=== PATIENT | female | born 1945 | race Caucasian/White ===

== ENCOUNTER 2023-06-24 09:58 | Outpatient (RCR) | payer MEDICARE, SELFPAY ==
[2023-05-27 10:05] VITALS: BP 141/75
[2023-05-27] MEDS: PROLASTIN C 100 MG IV (10:23)
[2023-06-03 10:13] VITALS: BP 142/68
[2023-06-03] MEDS: PROLASTIN C 100 MG IV (10:30)
[2023-06-10] MEDS: PROLASTIN C 100 MG IV (10:31)
[2023-06-10 10:35] VITALS: BP 130/58
[2023-06-17 10:05] VITALS: BP 141/62
[2023-06-17] MEDS: PROLASTIN C 100 MG IV (10:19)
[2023-06-24 10:11] VITALS: BP 148/79
[2023-06-24] MEDS: PROLASTIN C 100 MG IV (10:28)
== END 2023-06-24 23:59 | disposition home or self-care (01) ==
LOC: OID 09:58
PROVIDERS: ATTENDING PHYSICIAN Internal Medicine Critical Care Medicine; FAMILY PHYSICIAN Family Medicine
DX: E88.01 Alpha-1-antitrypsin deficiency (principal)
CPT/HCPCS: 96365; J0256

== ENCOUNTER → 2023-07-01 11:18 | Outpatient (REF) | payer MEDICARE, SELFPAY | LOC: HWWDC 11:18 | PROVIDERS: ATTENDING PHYSICIAN Family Medicine | DX: Z12.31 Encounter for screening mammogram for malignant neoplasm of breast (principal) | CPT/HCPCS: 77063; 77067 ==

== ENCOUNTER 2023-07-22 09:50 | Outpatient (RCR) | payer MEDICARE, SELFPAY ==
[2023-07-01] MEDS: PROLASTIN C 100 MG IV (10:16)
[2023-07-01 10:54] VITALS: BP 125/48
[2023-07-08 10:19] VITALS: BP 119/69
[2023-07-08] MEDS: PROLASTIN C 200 MG IV (10:38)
[2023-07-22 10:08] VITALS: BP 148/76
[2023-07-22] MEDS: PROLASTIN C 100 MG IV (10:27)
== END 2023-07-23 08:46 | disposition home or self-care (01) ==
LOC: OID 09:50
PROVIDERS: ATTENDING PHYSICIAN Internal Medicine Critical Care Medicine; FAMILY PHYSICIAN Family Medicine
DX: E88.01 Alpha-1-antitrypsin deficiency (principal)
CPT/HCPCS: 96365; J0256

== ENCOUNTER 2023-07-28 06:25 | Day surgery (SDC) | payer MEDICARE, SELFPAY ==
[2023-07-28 08:15] VITALS: BP 134/69
[2023-07-28 08:38] VITALS: BMI 30.4
[2023-07-28 10:35] VITALS: BP 115/66
[2023-07-28 10:45] VITALS: BP 106/68
[2023-07-28 11:01] VITALS: BP 139/67
== END 2023-07-28 11:20 | disposition home or self-care (01) ==
LOC: GI 06:25
PROVIDERS: ATTENDING PHYSICIAN Internal Medicine Gastroenterology
DX: D12.0 Benign neoplasm of cecum (principal); D12.3 Benign neoplasm of transverse colon; D12.4 Benign neoplasm of descending colon; D12.5 Benign neoplasm of sigmoid colon; K57.30 Diverticulosis of large intestine without perforation or abscess without bleeding; K64.0 First degree hemorrhoids; R19.5 Other fecal abnormalities
CPT/HCPCS: 45385; 45380; 45381; 88305

== ENCOUNTER 2023-08-19 09:49 | Outpatient (RCR) | payer MEDICARE, SELFPAY ==
[2023-07-29 10:00] VITALS: BP 122/68
[2023-07-29] MEDS: PROLASTIN C 100 MG IV (10:28)
[2023-08-05 10:09] VITALS: BP 112/83
[2023-08-05] MEDS: PROLASTIN C 100 MG IV (10:32)
[2023-08-12] MEDS: PROLASTIN C 100 MG IV (10:18)
[2023-08-12 10:31] VITALS: BP 144/72
[2023-08-19 10:00] VITALS: BP 169/72
[2023-08-19] MEDS: PROLASTIN C 100 MG IV (10:13)
== END 2023-08-19 14:20 | disposition home or self-care (01) ==
LOC: OID 09:49
PROVIDERS: ATTENDING PHYSICIAN Internal Medicine Critical Care Medicine; FAMILY PHYSICIAN Family Medicine
DX: E88.01 Alpha-1-antitrypsin deficiency (principal)
CPT/HCPCS: 96365; J0256

== ENCOUNTER 2023-09-23 10:00 | Outpatient (RCR) | payer MEDICARE, SELFPAY ==
[2023-08-26 10:15] VITALS: BP 148/72
[2023-08-26] MEDS: PROLASTIN C 100 MG IV (10:30)
[2023-09-02] MEDS: PROLASTIN C 100 MG IV (10:23)
[2023-09-02 10:35] VITALS: BP 154/70
[2023-09-09 10:07] VITALS: BP 146/82
[2023-09-09] MEDS: PROLASTIN C 100 MG IV (10:17)
[2023-09-16] MEDS: PROLASTIN C 100 MG IV (10:30)
[2023-09-16 10:43] VITALS: BP 141/75
[2023-09-23] MEDS: PROLASTIN C 100 MG IV (10:33)
[2023-09-23 10:38] VITALS: BP 157/88
== END 2023-09-24 08:55 | disposition home or self-care (01) ==
LOC: OID 10:00
PROVIDERS: ATTENDING PHYSICIAN Internal Medicine Critical Care Medicine; FAMILY PHYSICIAN Family Medicine
DX: E88.01 Alpha-1-antitrypsin deficiency (principal)
CPT/HCPCS: 96365; J0256

== ENCOUNTER 2023-10-21 11:20 | Outpatient (RCR) | payer MEDICARE, SELFPAY ==
[2023-09-30 10:10] VITALS: BP 154/73
[2023-09-30] MEDS: PROLASTIN C 100 MG IV (10:24)
[2023-10-07 10:10] VITALS: BP 138/74
[2023-10-07] MEDS: PROLASTIN C 100 MG IV (10:35)
[2023-10-14 09:55] VITALS: BP 123/66
[2023-10-14] MEDS: PROLASTIN C 100 MG IV (10:12)
[2023-10-21 11:35] VITALS: BP 124/76
[2023-10-21] MEDS: PROLASTIN C 100 MG IV (12:01)
== END 2023-10-22 10:50 | disposition home or self-care (01) ==
LOC: OID 11:20
PROVIDERS: ATTENDING PHYSICIAN Internal Medicine Critical Care Medicine; FAMILY PHYSICIAN Family Medicine
DX: E88.01 Alpha-1-antitrypsin deficiency (principal)
CPT/HCPCS: 96365; J0256

== ENCOUNTER 2023-11-18 09:42 | Outpatient (RCR) | payer MEDICARE, SELFPAY ==
[2023-10-27 10:10] VITALS: BP 136/64
[2023-10-27] MEDS: PROLASTIN C 100 MG IV (10:20)
[2023-11-04] MEDS: PROLASTIN C 100 MG IV (10:31)
[2023-11-04 10:41] VITALS: BP 129/67
[2023-11-11 10:30] VITALS: BP 129/68
[2023-11-11] MEDS: PROLASTIN C 100 MG IV (10:43)
[2023-11-11 10:45] VITALS: BMI 31.3
[2023-11-18 10:00] VITALS: BP 141/73
[2023-11-18] MEDS: PROLASTIN C 100 MG IV (10:06)
== END 2023-11-19 08:29 | disposition home or self-care (01) ==
LOC: OID 09:42
PROVIDERS: ATTENDING PHYSICIAN Internal Medicine Critical Care Medicine; FAMILY PHYSICIAN Family Medicine
DX: E88.01 Alpha-1-antitrypsin deficiency (principal)
CPT/HCPCS: 96365; J0256

== ENCOUNTER 2023-12-23 09:14 | Outpatient (RCR) | payer MEDICARE, SELFPAY ==
[2023-11-25 09:55] VITALS: BP 160/82
[2023-11-25] MEDS: PROLASTIN C 100 MG IV (10:08)
[2023-12-02 10:00] VITALS: BP 153/72
[2023-12-02] MEDS: PROLASTIN C 100 MG IV (10:23)
[2023-12-02 10:30] VITALS: BMI 32.2
[2023-12-09 09:20] VITALS: BP 119/60
[2023-12-09] MEDS: PROLASTIN C 100 MG IV (09:46)
[2023-12-09 09:57] VITALS: BMI 31.8
[2023-12-16 09:20] VITALS: BP 134/70
[2023-12-16] MEDS: PROLASTIN C 100 MG IV (09:55)
[2023-12-16 09:57] VITALS: BMI 31.6
[2023-12-23 09:25] VITALS: BP 146/70
[2023-12-23] MEDS: PROLASTIN C 100 MG IV (09:36)
== END 2023-12-24 08:21 | disposition home or self-care (01) ==
LOC: OID 09:14
PROVIDERS: ATTENDING PHYSICIAN Internal Medicine Critical Care Medicine; FAMILY PHYSICIAN Family Medicine
DX: E88.01 Alpha-1-antitrypsin deficiency (principal)
CPT/HCPCS: 96365; J0256

== ENCOUNTER 2024-01-20 09:03 | Outpatient (RCR) | payer MEDICARE, SELFPAY ==
[2023-12-30] MEDS: PROLASTIN C 100 MG IV (09:38)
[2023-12-30 09:47] VITALS: BP 144/69
[2024-01-06] MEDS: PROLASTIN C 100 MG IV (09:32)
[2024-01-06 09:47] VITALS: BP 135/67
[2024-01-13 09:29] VITALS: BP 135/72
[2024-01-13] MEDS: PROLASTIN C 100 MG IV (09:47)
[2024-01-20 09:10] VITALS: BP 158/83
[2024-01-20] MEDS: PROLASTIN C 100 MG IV (09:24)
== END 2024-01-24 23:59 | disposition home or self-care (01) ==
LOC: OID 09:03
PROVIDERS: ATTENDING PHYSICIAN Internal Medicine Critical Care Medicine; FAMILY PHYSICIAN Family Medicine
DX: E88.01 Alpha-1-antitrypsin deficiency (principal)
CPT/HCPCS: 96365; J0256

== ENCOUNTER 2024-02-24 09:45 | Outpatient (RCR) | payer MEDICARE, SELFPAY ==
[2024-01-27 09:40] VITALS: BP 116/63
[2024-01-27] MEDS: PROLASTIN C 100 MG IV (09:54)
[2024-01-27 10:14] VITALS: BMI 30.5
[2024-02-03 09:30] VITALS: BP 128/53
[2024-02-03] MEDS: PROLASTIN C 100 MG IV (09:48)
[2024-02-03 09:50] VITALS: BMI 30.9
[2024-02-10] MEDS: PROLASTIN C 100 MG IV (09:43)
[2024-02-10 09:48] VITALS: BP 123/53; BMI 30.7
[2024-02-17 09:40] VITALS: BP 139/66; BMI 30.6
[2024-02-17] MEDS: PROLASTIN C 100 MG IV (09:59)
[2024-02-24 09:45] VITALS: BP 144/77
[2024-02-24] MEDS: PROLASTIN C 100 MG IV (10:11)
== END 2024-02-24 23:59 | disposition home or self-care (01) ==
LOC: OID 09:45
PROVIDERS: ATTENDING PHYSICIAN Internal Medicine Critical Care Medicine; FAMILY PHYSICIAN Family Medicine
DX: E88.01 Alpha-1-antitrypsin deficiency (principal)
CPT/HCPCS: 96365; J0256

== ENCOUNTER 2024-03-22 10:26 | Outpatient (RCR) | payer MEDICARE, SELFPAY ==
[2024-03-02] MEDS: PROLASTIN C 100 MG IV (10:35)
[2024-03-02 10:44] VITALS: BP 130/74
[2024-03-09] MEDS: PROLASTIN C 100 MG IV (10:13)
[2024-03-09 10:15] VITALS: BP 139/59
[2024-03-16 10:00] VITALS: BP 151/74
[2024-03-16] MEDS: PROLASTIN C 100 MG IV (10:06)
[2024-03-22] MEDS: PROLASTIN C 100 MG IV (10:27)
[2024-03-22 10:31] VITALS: BP 128/70
== END 2024-03-24 08:14 | disposition home or self-care (01) ==
LOC: OID 10:26
PROVIDERS: ATTENDING PHYSICIAN Internal Medicine Critical Care Medicine; FAMILY PHYSICIAN Family Medicine
DX: E88.01 Alpha-1-antitrypsin deficiency (principal)
CPT/HCPCS: 96365; J0256

== ENCOUNTER 2024-04-20 09:41 | Outpatient (RCR) | payer MEDICARE, SELFPAY ==
[2024-03-30 10:00] VITALS: BP 150/75
[2024-03-30] MEDS: PROLASTIN C 100 MG IV (10:08)
[2024-03-30 10:14] VITALS: BMI 30.7
[2024-04-06] MEDS: PROLASTIN C 100 MG IV (10:20)
[2024-04-06 10:36] VITALS: BP 148/74; BMI 29.5
[2024-04-13 10:10] VITALS: BP 127/69
[2024-04-13] MEDS: PROLASTIN C 100 MG IV (10:20)
[2024-04-13 10:32] VITALS: BMI 30.4
[2024-04-20 10:00] VITALS: BMI 30.5
[2024-04-20 10:09] VITALS: BP 136/68
[2024-04-20] MEDS: PROLASTIN C 100 MG IV (10:20)
== END 2024-04-21 08:48 | disposition home or self-care (01) ==
LOC: OID 09:41
PROVIDERS: ATTENDING PHYSICIAN Internal Medicine Critical Care Medicine; FAMILY PHYSICIAN Family Medicine
DX: E88.01 Alpha-1-antitrypsin deficiency (principal); D80.1 Nonfamilial hypogammaglobulinemia
CPT/HCPCS: 96365; J0256

== ENCOUNTER 2024-05-25 09:50 | Outpatient (RCR) | payer MEDICARE, SELFPAY ==
[2024-04-27 10:12] VITALS: BP 144/68
[2024-04-27] MEDS: PROLASTIN C 100 MG IV (10:36)
[2024-05-04 10:00] VITALS: BP 153/68
[2024-05-04] MEDS: PROLASTIN C 100 MG IV (10:13)
[2024-05-11 09:55] VITALS: BP 154/57
[2024-05-11] MEDS: PROLASTIN C 100 MG IV (10:07)
[2024-05-18 10:11] VITALS: BP 124/61
[2024-05-18] MEDS: PROLASTIN C 100 MG IV (10:23)
[2024-05-25 10:20] VITALS: BP 121/61
[2024-05-25] MEDS: PROLASTIN C 200 MG IV (10:35)
[2024-05-25 10:42] VITALS: BMI 30.1
== END 2024-05-26 11:24 | disposition home or self-care (01) ==
LOC: OID 09:50
PROVIDERS: ATTENDING PHYSICIAN Internal Medicine Critical Care Medicine; FAMILY PHYSICIAN Family Medicine
DX: E88.01 Alpha-1-antitrypsin deficiency (principal); D80.1 Nonfamilial hypogammaglobulinemia
CPT/HCPCS: 96365; J0256

== ENCOUNTER 2024-06-22 09:53 | Outpatient (RCR) | payer MEDICARE, SELFPAY ==
[2024-06-08 10:15] VITALS: BP 117/65
[2024-06-08] MEDS: PROLASTIN C 100 MG IV (10:26)
[2024-06-08 10:36] VITALS: BMI 30.1
[2024-06-08 10:45] VITALS: BP 122/66
[2024-06-15 10:20] VITALS: BP 134/74
[2024-06-15] MEDS: PROLASTIN C 100 MG IV (10:26)
[2024-06-22 10:05] VITALS: BP 112/52
[2024-06-22] MEDS: PROLASTIN C 100 MG IV (10:22)
[2024-06-22 10:26] VITALS: BMI 29.5
== END 2024-06-23 23:59 | disposition home or self-care (01) ==
LOC: OID 09:53
PROVIDERS: ATTENDING PHYSICIAN Internal Medicine Critical Care Medicine; FAMILY PHYSICIAN Family Medicine
DX: E88.01 Alpha-1-antitrypsin deficiency (principal); D80.1 Nonfamilial hypogammaglobulinemia
CPT/HCPCS: 96365; J0256

== ENCOUNTER → 2024-07-03 15:36 | Outpatient (REF) | payer MEDICARE, SELFPAY | LOC: HWWDC 15:36 | PROVIDERS: ATTENDING PHYSICIAN Family Medicine | DX: Z12.31 Encounter for screening mammogram for malignant neoplasm of breast (principal) | CPT/HCPCS: 77063; 77067 ==

== ENCOUNTER 2024-07-20 09:46 | Outpatient (RCR) | payer MEDICARE, SELFPAY ==
[2024-06-29] MEDS: PROLASTIN C 100 MG IV (10:05)
[2024-06-29 12:41] VITALS: BP 128/90
[2024-07-06 10:29] VITALS: BP 114/73
[2024-07-06] MEDS: PROLASTIN C 100 MG IV (10:36)
[2024-07-13 10:04] VITALS: BP 116/65
[2024-07-13] MEDS: PROLASTIN C 80 MG IV (10:11)
[2024-07-20 10:00] VITALS: BP 129/63
[2024-07-20] MEDS: PROLASTIN C 80 MG IV (10:11)
== END 2024-07-21 08:25 | disposition home or self-care (01) ==
LOC: OID 09:46
PROVIDERS: ATTENDING PHYSICIAN Internal Medicine Critical Care Medicine; FAMILY PHYSICIAN Family Medicine
DX: E88.01 Alpha-1-antitrypsin deficiency (principal); D80.1 Nonfamilial hypogammaglobulinemia
CPT/HCPCS: 96365; J0256

== ENCOUNTER 2024-08-17 09:48 | Outpatient (RCR) | payer MEDICARE, SELFPAY ==
[2024-07-27 09:50] VITALS: BP 128/68
[2024-07-27] MEDS: PROLASTIN C 80 MG IV (10:05)
[2024-08-03 10:05] VITALS: BP 126/71
[2024-08-03] MEDS: PROLASTIN C 100 MG IV (10:10)
[2024-08-10 10:00] VITALS: BP 138/61
[2024-08-10] MEDS: PROLASTIN C 100 MG IV (10:30)
[2024-08-10 11:10] VITALS: BP 142/62
[2024-08-17] MEDS: PROLASTIN C 100 MG IV (10:30)
[2024-08-17 11:32] VITALS: BP 137/71
== END 2024-08-18 10:12 | disposition home or self-care (01) ==
LOC: OID 09:48
PROVIDERS: ATTENDING PHYSICIAN Internal Medicine Critical Care Medicine; FAMILY PHYSICIAN Family Medicine
DX: E88.01 Alpha-1-antitrypsin deficiency (principal); D80.1 Nonfamilial hypogammaglobulinemia
CPT/HCPCS: 96365; J0256

== ENCOUNTER 2024-09-21 09:42 | Outpatient (RCR) | payer MEDICARE, SELFPAY ==
[2024-08-24 10:14] VITALS: BP 150/80
[2024-08-24] MEDS: PROLASTIN C 100 MG IV (10:24)
[2024-08-31] MEDS: PROLASTIN C 80 MG IV (10:50)
[2024-08-31 10:57] VITALS: BP 145/82
[2024-08-31 11:17] VITALS: BP 142/78
[2024-09-07 10:10] VITALS: BP 128/65
[2024-09-07] MEDS: PROLASTIN C 80 MG IV (10:25)
[2024-09-14] MEDS: PROLASTIN C 80 MG IV (10:29)
[2024-09-14 10:33] VITALS: BP 142/71
[2024-09-21] MEDS: PROLASTIN C 80 MG IV (10:21)
[2024-09-21 10:28] VITALS: BP 139/67
== END 2024-09-22 09:26 | disposition home or self-care (01) ==
LOC: OID 09:42
PROVIDERS: ATTENDING PHYSICIAN Internal Medicine Critical Care Medicine; FAMILY PHYSICIAN Family Medicine
DX: E88.01 Alpha-1-antitrypsin deficiency (principal); D80.1 Nonfamilial hypogammaglobulinemia
CPT/HCPCS: 96365; J0256

== ENCOUNTER 2024-10-19 09:45 | Outpatient (RCR) | payer MEDICARE, SELFPAY ==
[2024-09-28 10:00] VITALS: BP 154/79
[2024-09-28] MEDS: PROLASTIN C 80 MG IV (10:15)
[2024-10-05 10:06] VITALS: BP 132/72
[2024-10-05] MEDS: PROLASTIN C 80 MG IV (10:22)
[2024-10-12 10:01] VITALS: BP 145/60
[2024-10-12] MEDS: PROLASTIN C 80 MG IV (10:11)
[2024-10-19 09:50] VITALS: BP 149/76
[2024-10-19] MEDS: PROLASTIN C 80 MG IV (10:17)
== END 2024-10-23 12:46 | disposition home or self-care (01) ==
LOC: OID 09:45
PROVIDERS: ATTENDING PHYSICIAN Internal Medicine Critical Care Medicine; FAMILY PHYSICIAN Family Medicine
DX: E88.01 Alpha-1-antitrypsin deficiency (principal); D80.1 Nonfamilial hypogammaglobulinemia
CPT/HCPCS: 96365; J0256

== ENCOUNTER 2024-10-25 06:30 | Day surgery (SDC) | payer MEDICARE, SELFPAY | END 2024-10-25 15:07 | disposition home or self-care (01) | LOC: GI 06:30 | PROVIDERS: ATTENDING PHYSICIAN Internal Medicine Gastroenterology | DX: Z12.11 Encounter for screening for malignant neoplasm of colon (principal); K57.30 Diverticulosis of large intestine without perforation or abscess without bleeding; K64.0 First degree hemorrhoids; D12.0 Benign neoplasm of cecum; D12.3 Benign neoplasm of transverse colon; K63.5 Polyp of colon; Z86.0100 Personal history of colon polyps, unspecified; Z98.890 Other specified postprocedural states | CPT/HCPCS: 45385; 45380; 88305 ==

== ENCOUNTER 2024-11-23 10:01 | Outpatient (RCR) | payer MEDICARE, SELFPAY ==
[2024-10-26 10:10] VITALS: BP 107/68
[2024-10-26 10:30] VITALS: BMI 29.1
[2024-10-26] MEDS: PROLASTIN C 100 MG IV (10:38)
[2024-11-02 10:00] VITALS: BP 135/63
[2024-11-02] MEDS: PROLASTIN C 100 MG IV (10:10)
[2024-11-09] MEDS: PROLASTIN C 180 MG IV (10:30)
[2024-11-09 10:33] VITALS: BMI 30.3
[2024-11-09 10:34] VITALS: BP 153/75
[2024-11-23 10:00] VITALS: BP 125/75; BMI 31.3
[2024-11-23] MEDS: GLASSIA 200 GRAM IV (10:22)
== END 2024-11-23 23:59 | disposition home or self-care (01) ==
LOC: OID 10:01
PROVIDERS: ATTENDING PHYSICIAN Internal Medicine Critical Care Medicine; FAMILY PHYSICIAN Family Medicine
DX: E88.01 Alpha-1-antitrypsin deficiency (principal); D80.1 Nonfamilial hypogammaglobulinemia
CPT/HCPCS: 96365; J0256

== ENCOUNTER 2024-12-21 09:41 | Outpatient (RCR) | payer MEDICARE, SELFPAY ==
[2024-11-30 10:10] VITALS: BP 101/69
[2024-11-30 10:15] VITALS: BMI 30.3
[2024-11-30] MEDS: GLASSIA 200 GRAM IV (10:30)
[2024-12-07 10:08] VITALS: BP 135/70
[2024-12-07] MEDS: GLASSIA 200 GRAM IV (10:19)
[2024-12-14 09:45] VITALS: BP 151/70; BMI 30.9
[2024-12-14] MEDS: GLASSIA 200 GRAM IV (10:02)
[2024-12-21 09:55] VITALS: BP 145/78; BMI 30.6
[2024-12-21] MEDS: GLASSIA 200 GRAM IV (10:10)
== END 2024-12-22 10:24 | disposition home or self-care (01) ==
LOC: OID 09:41
PROVIDERS: ATTENDING PHYSICIAN Internal Medicine Critical Care Medicine; FAMILY PHYSICIAN Family Medicine
DX: E88.01 Alpha-1-antitrypsin deficiency (principal); D80.1 Nonfamilial hypogammaglobulinemia
CPT/HCPCS: 96365

== ENCOUNTER 2025-01-18 09:43 | Outpatient (RCR) | payer MEDICARE, SELFPAY ==
[2024-12-28 10:09] VITALS: BP 126/61
[2024-12-28] MEDS: GLASSIA 200 GRAM IV (10:25)
[2025-01-04 10:20] VITALS: BP 146/66
[2025-01-04] MEDS: GLASSIA 200 GRAM IV (10:25)
[2025-01-04 10:31] VITALS: BMI 31.4
[2025-01-11 10:00] VITALS: BP 129/64
[2025-01-11] MEDS: GLASSIA 200 GRAM IV (10:21)
[2025-01-18 10:20] VITALS: BP 130/56
[2025-01-18] MEDS: GLASSIA 200 GRAM IV (10:34)
== END 2025-01-19 09:09 | disposition home or self-care (01) ==
LOC: OID 09:43
PROVIDERS: ATTENDING PHYSICIAN Internal Medicine Critical Care Medicine; FAMILY PHYSICIAN Family Medicine
DX: E88.01 Alpha-1-antitrypsin deficiency (principal); D80.1 Nonfamilial hypogammaglobulinemia
CPT/HCPCS: 96365

== ENCOUNTER 2025-02-22 09:40 | Outpatient (RCR) | payer MEDICARE, SELFPAY ==
[2025-01-25 10:00] VITALS: BP 127/76
[2025-01-25] MEDS: GLASSIA 200 GRAM IV (10:29)
[2025-02-01 10:00] VITALS: BP 149/73
[2025-02-01] MEDS: GLASSIA 200 GRAM IV (10:22)
[2025-02-08 10:20] VITALS: BP 140/76
[2025-02-08] MEDS: GLASSIA 200 GRAM IV (10:32)
[2025-02-08 11:04] VITALS: BP 134/74
[2025-02-15 10:10] VITALS: BP 163/87
[2025-02-15] MEDS: GLASSIA 200 GRAM IV (10:25)
[2025-02-22] MEDS: GLASSIA 200 GRAM IV (10:21)
[2025-02-22 10:31] VITALS: BP 143/73
== END 2025-02-23 09:17 | disposition home or self-care (01) ==
LOC: OID 09:40
PROVIDERS: ATTENDING PHYSICIAN Internal Medicine Critical Care Medicine; FAMILY PHYSICIAN Family Medicine
DX: E88.01 Alpha-1-antitrypsin deficiency (principal); D80.1 Nonfamilial hypogammaglobulinemia
CPT/HCPCS: 96365

== ENCOUNTER → 2025-02-27 10:22 | Outpatient (REF) | payer MEDICARE, SELFPAY | LOC: HWRAD 10:22 | PROVIDERS: ATTENDING PHYSICIAN Family Medicine | DX: M81.0 Age-related osteoporosis without current pathological fracture (principal) | CPT/HCPCS: 77080 ==

== ENCOUNTER 2025-03-21 09:44 | Outpatient (RCR) | payer MEDICARE, SELFPAY ==
[2025-03-01 09:55] VITALS: BP 144/76
[2025-03-01] MEDS: GLASSIA 200 GRAM IV (10:11)
[2025-03-08] MEDS: GLASSIA 250 MG IV (10:20)
[2025-03-08 10:28] VITALS: BP 139/70
[2025-03-15 10:15] VITALS: BP 155/73
[2025-03-15] MEDS: GLASSIA 250 MG IV (10:24)
[2025-03-15 10:47] VITALS: BMI 32.2
[2025-03-21] MEDS: GLASSIA 250 MG IV (10:13)
[2025-03-21 10:18] VITALS: BP 152/62; BMI 31.9
== END 2025-03-23 10:46 | disposition home or self-care (01) ==
LOC: OID 09:44
PROVIDERS: ATTENDING PHYSICIAN Internal Medicine Critical Care Medicine; FAMILY PHYSICIAN Family Medicine
DX: E88.01 Alpha-1-antitrypsin deficiency (principal); D80.1 Nonfamilial hypogammaglobulinemia
CPT/HCPCS: 96365; J0257

== ENCOUNTER 2025-04-25 09:43 | Outpatient (RCR) | payer MEDICARE, SELFPAY ==
[2025-03-29 10:15] VITALS: BP 153/73
[2025-03-29] MEDS: GLASSIA 250 MG IV (10:43)
[2025-04-12] MEDS: GLASSIA 250 MG IV (10:40)
[2025-04-12 10:48] VITALS: BP 139/88
[2025-04-18 10:11] VITALS: BP 153/78
[2025-04-18] MEDS: GLASSIA 250 MG IV (10:22)
[2025-04-25 09:52] VITALS: BP 144/80
[2025-04-25] MEDS: GLASSIA 250 MG IV (10:22)
== END 2025-04-25 23:59 | disposition home or self-care (01) ==
LOC: OID 09:43
PROVIDERS: ATTENDING PHYSICIAN Internal Medicine Critical Care Medicine; FAMILY PHYSICIAN Family Medicine
DX: E88.01 Alpha-1-antitrypsin deficiency (principal); D80.1 Nonfamilial hypogammaglobulinemia
CPT/HCPCS: 96365; J0257